=== PATIENT | female | born 2005 | race Hispanic/Latino ===

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

== ENCOUNTER 2023-02-10 20:15 | Emergency (ER) | payer OTHER ==
[~2023-02-10] VITALS: Ht 175.3 cm; Wt 68.0 kg
[~2023-02-10 20:15] MED LIST changes: +PERCOCET 5/325M1 TAB PO
[2023-02-10 20:52] LABS: URINE BILIRUBIN - DIPSTICK NEGATIVE (NEGATIVE); URINE BLOOD DIPSTICK SMALL (NEGATIVE); URINE COLOR YELLOW; URINE GLUCOSE - DIPSTICK NEGATIVE (NEGATIVE); URINE KETONE NEGATIVE (NEGATIVE); URINE LEUK ESTERASE NEGATIVE (NEGATIVE); URINE NITRITE - DIPSTICK POSITIVE (Negative); URINE PROTEIN - DIPSTICK NEGATIVE (NEG-TRACE); URINE SPECIFIC GRAVITY 1.025
[2023-02-10 20:58] LABS: URINE BACTERIA FEW hpf; URINE SQUAMOUS EPITHELIAL CELL MODERATE EPI/hpf (0-FEW)
[2023-02-10 21:27] LABS: BASO% 0.6 % (0-3); EOS% 1.3 % (0-8); IMMATURE GRANULOCYTES 0.1 % (0.0-5.0); MEAN CELL VOLUME 87.7 fL CALC (80.0-100.0); MEAN CORPUSCULAR HGB 28.9 pG CALC (26.0-32.0); MONO% 8.5 % (2-13); NEUT# 5.42 thou/uL (2.00-7.15); NEUT% 64.5 % (42-76); RED BLOOD COUNT 4.46 mill/uL (4.20-5.60); RED CELL DISTRI WIDTH 11.9 % (11.5-15.5)
[2023-02-10 21:30] LABS: HEMATOCRIT 39.1 % (37.0-47.0); HEMOGLOBIN 12.9 g/dl (12.0-16.0)
[2023-02-10 21:49] LABS: ALBUMIN 4.4 g/dL (3.2-5.0); ALKALINE PHOSPHATASE 73 u/l (38-126); AMYLASE 54 u/l (30-110); ANION GAP 13 (6-22 (CALC)); BILIRUBIN, TOTAL 0.4 mg/dL (0.02-1.3); BUN 14 mg/dL (8-21); BUN/CREATININE RATIO 18 (12-20 (CALC)); CARBON DIOXIDE 26 mmol/l (22-30); CHLORIDE 103 mmol/l (95-108); CREATININE 0.7 mg/dL (0.5-1.0); GFR FOR AFR.AMER. > 60 ML/MIN (>=60 (CALC)); GFR OTHER RACES > 60 ML/MIN (>=60 (CALC)); LIPASE 81 u/l (23-300); POTASSIUM 3.9 mmol/l (3.5-5.1); SGOT/AST 24 u/l (14-36); SODIUM 138 mmol/l (137-146); TOTAL PROTEIN 6.9 g/dL (6.3-8.2)
[2023-02-10] MEDS ORDERED: CIPROFLOXACN500 MG PO (22:58)
[2023-02-10 23:03] VITALS: BP 106/73
== END 2023-02-10 23:16 | disposition home or self-care (01) | DRG 690 ==
LOC: ED 20:15
PROVIDERS: Emergency Medicine
DX: N30.90 Cystitis, unspecified without hematuria (principal)
CPT/HCPCS: Q9967

== ENCOUNTER 2024-05-04 20:32 | Emergency (ER) | payer OTHER ==
[~2024-05-04 20:32] MED LIST changes: +CIPROFLOXACN500 MG PO
== END 2024-05-04 20:45 | disposition left against medical advice (07) | DRG 951 ==
LOC: ED 20:32 → LWOBS 20:45
DX: Z53.21 Procedure and treatment not carried out due to patient leaving prior to being seen by health care provider (principal)

== ENCOUNTER 2024-05-04 21:26 | Emergency (ER) | payer OTHER ==
[~2024-05-04] VITALS: Ht 175.3 cm; Wt 71.0 kg
[2024-05-04] MEDS ORDERED: IBUPROFEN 100 MG/5 ML PO ONE (21:55)
[2024-05-04] MEDS ORDERED: ACETAMINOPHEN 160 MG/5 ML DOSE PO ONE (21:55)
[2024-05-04 23:58] VITALS: BP 104/60
== END 2024-05-04 23:58 | disposition home or self-care (01) | DRG 563 ==
LOC: ED 21:26
DX: S93.402A Sprain of unspecified ligament of left ankle, initial encounter (principal); X50.0XXA Overexertion from strenuous movement or load, initial encounter; Y93.68 Activity, volleyball (beach) (court)